=== PATIENT | female | born 1955 | race Caucasian/White ===

== ENCOUNTER → 2020-03-09 16:59 | Outpatient (CLI) | payer OTHER, SELFPAY ==
[2020-02-29 14:21] VITALS: BMI 25.7
--- NOTE | 2020-03-09 17:00 | MRI_ITS ---
STUDY: MRI LUMBAR SPINE WITHOUT CONTRAST REASON FOR EXAM: Female, 64 years old. radiculopathy, rt leg pain, worsening pain x 3-4 mos TECHNIQUE: Standardized fat and water weighted pulse sequences were obtained in the sagittal and axial planes. COMPARISON: 10/13/2007 FINDINGS: T12-L1: Normal endplates. Normal disc height, hydration and morphology. Normal bilateral facet joints. Normal central canal and bilateral lateral recesses. Normal bilateral intervertebral neural foramina. Normal lumbar lordosis. There is no substantial scoliosis. Normal conus medullaris that terminates at T12-L1 L1-2: Normal endplates. Normal disc height, hydration and morphology. Normal bilateral facet joints. Normal central canal and bilateral lateral recesses. Normal bilateral intervertebral neural foramina. L2-3: Normal endplates. Normal disc height, desiccation and minor annular bulge. Normal bilateral facet joints. Normal central canal and bilateral lateral recesses. Normal bilateral intervertebral neural foramina. L3-4: Normal endplates. Normal disc height, desiccation and minor annular bulge with small bilateral foraminal disc protrusions.. Normal bilateral facet joints. Normal central canal and bilateral lateral recesses. Mild bilateral neuroforaminal stenosis. L4-5: Normal endplates. Normal disc height, desiccation and mild annular bulge. Bilateral facet arthropathy.. Normal central canal and bilateral lateral recesses. Moderate bilateral neuroforaminal stenosis L5-S1: Normal endplates. Normal disc height, desiccation and mild annular bulge.. Bilateral facet arthropathy. Normal central canal and bilateral lateral recesses. Moderate bilateral neuroforaminal stenosis.. Normal visualized sacral ala. Normal visualized paraspinous soft tissue structures. There has been interval progression of disc disease and spinal stenosis at L2-3, L3-4 and L4-5 since previous studies MRI/Spine Lumbar (Routine) IMPRESSION: No evidence for acute fracture or other significant bony pathology.. Multilevel spinal stenosis secondary to disc disease and bony hypertrophy which has progressed since previous exam Electronically Signed: Armin Burr MD at 21:42 EDT , Service support ,
== END ==
PROVIDERS: PCP Student in an Organized Health Care Education/Training Program; Referring Provider Physician Assistant; Visit Provider Physician Assistant
DX: M54.31 Sciatica, right side (principal)
CPT/HCPCS: 72148

== ENCOUNTER 2020-05-05 18:09 | Observation (INO) | payer OTHER, SELFPAY ==
[2020-02-29 14:21] VITALS: BMI 25.7
--- NOTE | 2020-04-27 09:57 | EKG12_ITS ---
Test Reason : PRE OP Blood Pressure : / mmHG Vent. Rate : 086 BPM Atrial Rate : 086 BPM P-R Int : 160 ms QRS Dur : 074 ms QT Int : 330 ms P-R-T Axes : 067 -08 035 degrees QTc Int : 394 ms Normal sinus rhythm Normal ECG Confirmed by SERAFIN QUIGLEY, OLLIE ([id number]), dictionary editor ISMAEL SIDDIQI ([id number]) on 04/29/2020 11:25:35 AM Referred By: Viraj Dial Confirmed By:OLLIE BETANCOURT MD
[2020-04-27 10:29] LABS: Absolute Lymphocyte Count 2.39 X10^3/uL (0.83-4.51); Absolute Neutrophil Count 3.4 X10^3/uL (2.0-7.7); Basophil# 0.03 X10^3/uL; Basophil% 0.5 % (0-1); Eosinophil# 0.08 X10^3/uL; Eosinophils% 1.2 % (0-5); Hematocrit 45.4 % (37-47); Hemoglobin 14.7 g/dL (12.0-15.0); Lymphocyte # 2.39 X10^3/ul (4.0); Lymphocyte % 36.1 % (19-41); Mean Corp Hgb Conc 32.4 g/dL (32-36); Mean Corpuscular Hgb 31.3 pg (27.0-32.0); Mean Corpuscular Volume 96.6 fL (81-99); Mean Platelet Vol. 9.5 fl (6.2-12.0); Monocyte# 0.76 X10^3/uL; Monocyte% 11.5 % (0-10); NRBC Flagged by Analyzer 0 % (0-5); Neutrophil # 3.35 X10^3/uL (2.7-7.7); Neutrophil % 50.5 % (47-70); Platelet Count 328 K/mm3 (150-450); RBC Distribution Width CV 12.2 % (11.6-14.6); RBC Distribution Width SD 43.8 fl (35.1-43.9); White Blood Count 6.6 K/mm3 (4.4-11.0)
[2020-04-27 11:15] LABS: Anion Gap 3 (5-15); BUN 17 mg/dL (7-18); BUN/Creat Ratio 16.2 RATIO (10-20); Calcium,Total 8.8 mg/dL (8.5-10.1); Chloride 103 mmol/L (98-107); Creatinine, Serum 1.05 mg/dL (0.55-1.02); EST Glomerular Filtration Rate 56 mL/min (>60); Est Glom Filt Rate - Afr Amer 68 mL/min (>60); Glucose 88 mg/dL (74-106); Potassium 3.7 mmol/L (3.5-5.1); Sodium Level 137 mmol/L (136-145)
[2020-04-27 11:18] LABS: Magnesium 2.3 mg/dL (1.6-2.6)
[2020-04-28 04:07] LABS: HEPATITIS B SURFACE AG Negative (Negative); Hepatitis A AB, Total Negative (Negative); Hepatitis A IgM Antibody Negative (Negative); Hepatitis B Core AB IgM Negative (Negative); Hepatitis B Core Ab Total Negative (Negative); Hepatitis C Ab <0.1 s/co ratio (0.0-0.9)
[2020-04-28 08:43] LABS: Hep B Surface Antibodies Non Reactive (.)
[2020-04-29 13:25] LABS: HIV - WCH Non-Reactive (Nonreactive)
[2020-05-05] VITALS (10 sets, daily range): BP systolic 120–147; BP diastolic 73–87; PULSE 69–92; RESP 14–18; TEMP 36.1–36.9; O2SAT 95–100; BMI 24.8
--- NOTE | 2020-05-05 | DISC_PTH ---
PATIENT: CHARLES VELAZQUEZ LOC: MS3 U#:[id number] AGE/SX: 64/F ROOM: MS318 RE05/05/[address]: Dr. Girma Rivera, : 1955 BED: 1 DIS: 05/07/2020 SPEC #: [id number] RECD: 05/06/20 10:30 STATUS: ANDREA RENidia #: [id number] KI: 05/05/20 00:[address]: Viraj Dial DEPT: SURGICAL PATHOLOGY RECD BY: Javier Willoughby ENTERED: 05/06/20 10:30 SP TYPE: DISC OTHR DR: Dr. Kenny Gar, DO Dr. Delicia Baig, DO Dr. Viraj Dial, DO Dr. Girma Rivera, Tissues: Intervertebral disc, NOS Procedures: Surgery Specimen Level III Comments: @ Ordering doctor for SUIII edited from to @ by MAGAN at 05/06/20 1135 @ Submitting doctor edited from to @ by RGOOD at 05/06/20 1135 HEADER OPERATION: ERAS, laminectomy/discectomy L5-S1 PRE-OP DIAGNOSIS: Disc protrusion at L5-S1 TISSUE SUBMITTED: Right L5-S1 disc MICROSCOPIC DIAGNOSIS Right L5-S1 discs, discectomy: Degenerative and focal reparative change. AM:chacorta 05/09/20 MICROSCOPIC DESCRIPTION Slides are reviewed. GROSS DESCRIPTION Received in fixative is one container labeled with the patient's name and designated right L5-S1 disc. The specimen consists of multiple irregular fragments of indurated, light burris-white soft tissue that in aggregate measure 2.5 x 1.5 x 0.2 cm. The specimen is totally submitted in one cassette. / AM:chacorta 05/06/20 TC:5 CPT: 77784
--- NOTE | 2020-05-05 10:40 | HP_ITS ---
Intake Intake Visit Reasons: 2 W FU Chief Complaint: Right hip pain Allergies latex Allergy (Intermediate, Verified 03/17/20 14:05) Rash PFSH Surgical History (Updated 02/15/20 @ 10:47 by Shara Holt) H/O section (Acute) Right foot surgery (Acute) Family History (Updated 02/15/20 @ 10:48 by Shara Holt) Mother CVA (cerebral vascular accident) Sister Breast cancer History of hip replacement Brother Myocardial infarction Social History (Updated 04/15/20 @ 15:[address] Viraj Dial, ) Smoking Status: Never smoker alcohol intake: current alcohol intake frequency: a few times a week what type of physical activity do you participate in: walking HPI 2 W FU: Details: Parts of this documentation were recorded by a scribe, this documentation accurately reflects the service provided and the decisions made by me, Dr. Viraj Dial, 04/15/20 1351. CHARLES VELAZQUEZ is a 64 year old F here today for her two week follow up. Patient did complete her injections with Dr. Luis. Voiced the injections made made her pretty fatigued. Has needed to receive Toradol injections as well. Patient voiced she did not see any improvement. Charles returns to the clinic in the company of her . She did have the epidural steroid injections and she states that for the first few hours after each injection she got tremendous relief of her leg pain. In fact it almost felt normal. But this only lasted a few hours and then the pain returned. However this served a diagnostic purpose and that it probably really is pressure on the right S1 nerve root. I reviewed her MRI scan again she has a disc protrusion at L5-S1 perhaps a little more on the right than the left. She has no left-sided symptoms. I reexamined her today she is got very positive tension signs and very positive straight leg raising. At this point time I think we will proceed with a laminectomy at L5-S1 on the right side I will see her again prior to surgical intervention. Coding Level of Care Code Off vis,est,level 2 Time Spent (min) 25
[2020-05-05] MEDS: Acetaminophen 500 MG Tablet 1000 MG PO (12:10)
[2020-05-05 12:11] LABS: Bedside Glucose 94 mg/dL (70-110)
[2020-05-05] MEDS: Lactated Ringers 1,000 ML 100 ML IV ×2 (12:20→15:45)
--- NOTE | 2020-05-05 15:25 | RAD_ITS ---
HISTORY: laminectomy, discectomy L5-S1, x-table image in OR ADDITIONAL HISTORY: None provided. EXAMINATION/TECHNIQUE: XR Spine Lumbar 1 View Number of images including paperwork: 1 COMPARISON: 02/15/2020 FINDINGS/IMPRESSION: Single lateral view of the lower lumbar spine shows a retractor and probe posterior to S1. Degenerative changes of the visualized spine, most pronounced at L5-S1. at 0753 Reported and signed by: Arielle Plasencia MD Electronically Signed: Arielle Plasencia MD at 7:53 EST Tel , Service support , RAD/Spine 1 View Any Level
--- NOTE | 2020-05-05 16:38 | PCM.OPRPT ---
Report of Operation Description of Surgical Findings:: Preoperative diagnosis: Per disc L5-S1 with severe right S1 radiculopathy Postoperative diagnosis: Same Procedure: Lumbar laminectomy discectomy L5-S1 on the right Surgeon: Dr. Dial statistical assistant: Marvin Manzano Anesthesia: [facility] EBL: 10 cc Drains: None Complications: None Patient was taken to the OR where she was placed under general endotracheal anesthesia. She was then placed in the prone position on the Celestino frame. After appropriate positioning with care to protect her bony prominences her breasts her ulnar nerves of both elbows her brachial plexus and her cervical spine and facial features the back was prepped and draped in standard fashion. I then made a longitudinal incision centered over L5-S1. I elevated the paravertebral muscles of the lamina of the spinous process of L5 and then the top of the S1 lamina. An intraoperative x-ray was taken with a marker in place to confirm that we were indeed at L5-S1. Then thinned out the lamina on this right side with double-action rongeurs. Then released the ligamentum flavum off the underside of the lamina of L5 and the top of the lamina of S1 using small curettes. This was done I remove the ligamentum flavum in large pieces with a 45 degree Kerrison rongeur. This took it out all the way laterally to remove the ligament in the lateral recess. L5 the S1 nerve root and using a Stuart gently moved medialward exposing the focal disc herniation that was subligamentous pressing directly on the base of the S1 nerve root. With my administrative library assistant holding the nerve and dura over with a nerve root retractor I cut out the protruded disc and removed some more within the disc space with pituitary rongeurs. Completely decompressed the S1 nerve root. We checked the foramen it was quite open this was done with a hockey-stick. Irrigation was carried out 1 last time. We then placed amnionic membrane directly over the exposed dura and nerve root to prevent adhesions to form in the future. We then approximated the lumbar fascia using [id number]-[id number] suture suture with #1 Vicryl followed by closure of subcutaneous tissues in layers with 2-0 Vicryl in interrupted fashion and skin was approximated using skin clips. Sterile dressings were then applied. We felt no need to put a drain in as she only had about 10 cc of blood loss. At closing it was extremely dry. Then moved her to her hospital bed and recovered her in the OR and she was then taken to recovery in satisfactory condition.
--- NOTE | 2020-05-05 18:53 | PCM.PROGNOTE ---
Subjective: Status post L5-S1 right laminectomy with discectomy secondary to severe S1 right radiculopathy-patient was seen and examined this afternoon at the request of orthopedic surgery for medical management of the patient that underwent a L5-S1 right laminectomy with discectomy secondary to severe S1 right radiculopathy. Patient underwent surgery today. Patient's only medications are tramadol and gabapentin, at the time of my examination, patient has no complaints of shortness of breath, chest pain, or any severe pain. - Physical Exam Vitals/I&O's: Vital Signs Temp Pulse Resp BP Pulse Ox 97.8 F 74 16 136/73 H 98 05/05/20 18:27 05/05/20 18:27 05/05/20 18:27 05/05/20 18:27 05/05/20 18:27 Oxygen Flow Rate (L/min) 6 Oxygen Delivery Method Room Air Weight: 67.7 kg Body Mass Index (BMI) 24.8 Intake and Output for Last 24 Hours 05/03/20 05/04/20 05/05/20 23:59 23:59 23:59 Intake Total 1210 / 1210 Output Total 100 / 100 Balance 1110 / 1110 General: Alert, Oriented x3, Cooperative, No apparent distress, Well developed, Well nourished HEENT: Atraumatic, PERRLA, EOMI, Normocephalic Oral: Moist Mucosa Neck: Supple, No JVD, Negative Carotid Bruits, Trachea Midline, Thyroid Normal Size and Texture Lungs: Clear to auscultation, Normal air movement, No rhonchi, No wheeze, No rales Cardiovascular: Regular rate, Regular Rhythm, Normal S1, Normal S2, No murmurs Abdomen: Bowel Sounds Present, Soft, Non Tender, Non-Distended Extremities: No clubbing, No cyanosis, No edema, Capillary Refill Less than 3 Seconds Skin: No rashes, No breakdown Musculoskeletal: No Tenderness to Palpation of Joints or Extremities Neurological: Cranial nerves II-XII grossly intact, Neuro grossly intact, Sensory exam intact to light touch and pain Psych/Mental Status: Normal Affect, Appropriate, Alert and oriented to time, place, person, mood and affect Microbiology Past 72 Hours 05/03/20 13:00 Interface Orders SARS-CoV-2 Antigen (Rapid) - Final Laboratory Results 05/05/20 12:04: POC Glucose 94 Current Medications Albuterol Sulfate (Albuterol 2.5 Mg/3 Ml Vial.Neb.) 2.5 mg INHALATION Q4H PRN PRN PRN Reason: WHEEZING Diazepam (Diazepam 5 Mg Tablet) 5 mg PO Q6H PRN PRN PRN Reason: Muscle Spasms Enteral Nutritional Formula (Ensure Surgery 237 Ml Liquid) 237 ml PO TIDCM KELLIE Famotidine (Famotidine 20 Mg Tablet) 20 mg PO BID KELLIE Gabapentin (Gabapentin 600 Mg Tablet) 600 mg PO TIDCM [facility] Lactated Ringer's () 1,000 mls @ 100 mls/hr IV .Q10H [facility] Last Admin: 05/05/20 15:45 Dose: 100 mls/hr Documented by: Clindamycin Phosphate 900 mg/ (Dextrose) 106 mls @ 150 mls/hr IV Q8H [facility] Stop: 05/06/20 06:43 Morphine Sulfate (Morphine 4 Mg/Ml Syringe) 2 - 4 mg IV Q2H PRN PRN PRN Reason: Pain Score 6-10 Morphine Sulfate (Morphine 2 Mg/Ml Syringe) 2 - 4 mg IV Q2H PRN PRN PRN Reason: Pain Score 6-10 Ondansetron HCl (Ondansetron 4 Mg/2 Ml Vial) 4 mg IV Q8H PRN PRN PRN Reason: NAUSEA Senna/Docusate Sodium (Senna/Docusate Sodium 1 Tablet) 2 tablet PO BID [facility] Sodium Chloride (0.9% Nacl Peripheral Flush Adult/Peds) 5 - 15 ml IV UD PRN PRN Reason: SALINE FLUSH Zolpidem Tartrate (Zolpidem Tartrate 5 Mg Tablet) 5 mg PO QHS PRN PRN PRN Reason: INSOMNIA Medical Necessity - Tobacco Use Smoking Status: Never smoker Assessment/Plan #1 Degenerative disc disease of the lumbar spine [id number] post right laminectomy at L5-S1 level with discectomy postop day 0-patient appears stable postop at this time #2 Severe right S1 radiculopathy secondary to #1 Patient currently appears medically stable at this time, SCDs were ordered for prevention of VTE Inpatient E&M: 15720 Subs Hosp L2
[2020-05-05] MEDS: Ensure Surgery 237 ML LIQUID PO (20:38)
[2020-05-05] MEDS: Famotidine 20 MG Tablet PO (20:39)
[2020-05-05] MEDS: Senna/Docusate Sodium 1 Tablet 2 TABLET PO (20:39)
[2020-05-05] MEDS: Gabapentin 600 MG Tablet PO (20:39)
[2020-05-05] MEDS: Morphine 2 MG/ML Syringe IV ×2 (20:40→21:33)
[2020-05-05] MEDS: Ondansetron 4 MG/2 ML Vial IV (21:11)
[2020-05-05] MEDS: 0.9% NaCl Peripheral Flush Adult/Peds IV (21:49)
[2020-05-06 00:11] VITALS: BP 135/73; PULSE 75; RESP 18; TEMP 36.4; O2SAT 96
[2020-05-06] MEDS: diazePAM 5 MG Tablet PO (00:20)
[2020-05-06] MEDS: 0.9% NaCl Peripheral Flush Adult/Peds IV ×4 (00:56→22:12)
[2020-05-06] MEDS: Morphine 4 MG/ML Syringe IV ×3 (03:17→16:34)
[2020-05-06] MEDS: Lactated Ringers 1,000 ML 100 ML IV ×3 (03:22→22:02)
[2020-05-06 04:15] VITALS: BP 122/75; PULSE 77; RESP 18; TEMP 36.6; O2SAT 96
[2020-05-06 07:10] VITALS: O2SAT 95
[2020-05-06 08:58] VITALS: BP 121/75; PULSE 95; RESP 18; TEMP 35.8; O2SAT 98
[2020-05-06] MEDS: Ensure Surgery 237 ML LIQUID PO ×3 (09:14→16:34)
[2020-05-06] MEDS: Senna/Docusate Sodium 1 Tablet 2 TABLET PO ×2 (09:14→22:02)
[2020-05-06] MEDS: Famotidine 20 MG Tablet PO ×2 (09:14→22:02)
[2020-05-06] MEDS: Gabapentin 600 MG Tablet PO ×3 (09:14→16:31)
[2020-05-06] MEDS: Acetaminophen 500 MG Tablet 1000 MG PO (12:03)
--- NOTE | 2020-05-06 13:45 | PN_ITS ---
Subjective: OR yesterday. Had been having issues for a long time with her back. Having a SANTANA now. Urinary retention since yesterday and murphy placed for 1000 cc of urine. Vitals/I&O's: Vital Signs Temp Pulse Resp BP Pulse Ox 96.4 F L 95 18 121/75 H 98 05/06/20 08:58 05/06/20 08:58 05/06/20 08:58 05/06/20 08:58 05/06/20 08:58 Oxygen Flow Rate (L/min) 6 Oxygen Delivery Method Room Air Weight: 67.7 kg Body Mass Index (BMI) 24.8 Intake and Output for Last 24 Hours 05/04/20 05/05/20 05/06/20 23:59 23:59 23:59 Intake Total 1316 / 1616 2406 / 2406 Output Total 100 / 100 3100 / 3100 Balance 1216 / 1516 -694 / -694 General: Alert, Oriented x3, Cooperative, Well developed, Well nourished HEENT: Atraumatic, Normocephalic Oral: Moist Mucosa Lungs: Clear to auscultation, Normal air movement, No rhonchi, No wheeze, No rales Cardiovascular: Regular rate, Regular Rhythm, Normal S1, Normal S2, No murmurs, No Ectopic Activity, No rub noted, No Gallop Abdomen: Bowel Sounds Present, Soft, Non Tender, Non-Distended Extremities: No clubbing, No cyanosis, No edema, Capillary Refill Less than 3 Seconds, Peripheral Pulses Normal Neurological: Cranial nerves II-XII grossly intact Psych/Mental Status: Normal Affect, Appropriate Microbiology Past 72 Hours 05/03/20 13:00 Interface Orders SARS-CoV-2 Antigen (Rapid) - Final Current Medications Acetaminophen (Acetaminophen 500 Mg Tablet) 1,000 mg PO Q8H PRN PRN PRN Reason: HEADACHE Last Admin: 05/06/20 12:03 Dose: 1,000 mg Documented by: Albuterol Sulfate (Albuterol 2.5 Mg/3 Ml Vial.Neb.) 2.5 mg INHALATION Q4H PRN PRN PRN Reason: WHEEZING Diazepam (Diazepam 5 Mg Tablet) 5 mg PO Q6H PRN PRN PRN Reason: Muscle Spasms Last Admin: 05/06/20 00:20 Dose: 5 mg Documented by: Enteral Nutritional Formula (Ensure Surgery 237 Ml Liquid) 237 ml PO TIDCM [facility] Last Admin: 05/06/20 11:46 Dose: 237 ml Documented by: Famotidine (Famotidine 20 Mg Tablet) 20 mg PO BID [facility] Last Admin: 05/06/20 09:14 Dose: 20 mg Documented by: Gabapentin (Gabapentin 600 Mg Tablet) 600 mg PO TIDCM [facility] Last Admin: 05/06/20 11:46 Dose: 600 mg Documented by: Lactated Ringer's () 1,000 mls @ 100 mls/hr IV .Q10H [facility] Last Admin: 05/06/20 03:22 Dose: 100 mls/hr Documented by: Morphine Sulfate (Morphine 4 Mg/Ml Syringe) 2 - 4 mg IV Q2H PRN PRN PRN Reason: Pain Score 6-10 Last Admin: 05/06/20 07:43 Dose: 4 mg Documented by: Morphine Sulfate (Morphine 2 Mg/Ml Syringe) 2 - 4 mg IV Q2H PRN PRN PRN Reason: Pain Score 6-10 Last Admin: 05/05/20 21:33 Dose: 2 mg Documented by: Ondansetron HCl (Ondansetron 4 Mg/2 Ml Vial) 4 mg IV Q8H PRN PRN PRN Reason: NAUSEA Last Admin: 05/05/20 21:11 Dose: 4 mg Documented by: Senna/Docusate Sodium (Senna/Docusate Sodium 1 Tablet) 2 tablet PO BID [facility] Last Admin: 05/06/20 09:14 Dose: 2 tablet Documented by: Sodium Chloride (0.9% Nacl Peripheral Flush Adult/Peds) 5 - 15 ml IV UD PRN PRN Reason: SALINE FLUSH Last Admin: 05/06/20 03:22 Dose: 10 ml Documented by: Sodium Chloride (0.9% Saline Lock 10 Ml Syringe) 10 - 40 ml IV UD PRN PRN Reason: SALINE FLUSH Zolpidem Tartrate (Zolpidem Tartrate 5 Mg Tablet) 5 mg PO QHS PRN PRN PRN Reason: INSOMNIA Medical Necessity - Tobacco Use Smoking Status: Never smoker Assessment/Plan DDD L5-S1 s/p ight laminectomy at L5-S1 level with discectomy -POD 1 -PT/OT per surgery -pain meds per surgery -add PRN Miralax Severe R Radiculopathy -see above Urinary Retention -Murphy -Flomax -avoid narcotics as able -nsg to notify surgery SANTANA -prn APAP -nsg to notify surgery HTN -restart home lisinopril GERD add PPI DVT prophylaxis -SCDs Inpatient E&M: 56702 Subs Hosp L2
[2020-05-06 15:00] VITALS: BP 123/63; PULSE 97; RESP 18; TEMP 37.2; O2SAT 96
[2020-05-06] MEDS: Tamsulosin HCl 0.4 MG Capsule PO (16:31)
--- NOTE | 2020-05-06 17:13 | PCM.PN.BLA ---
Progress Note Patient is seen on postop day #1. She states that her leg pain is better than it was but she still has some residual pain probably from the swelling of the nerve root. She has not been up today as she refused to get up for nursing. In addition she has not been using her incentive spirometry. She states that she forgot. I encouraged her to continue using it. Her dressing is dry. Neurologically she is intact. She is still using her pain medication and so we will wait until tomorrow to discharge her. STROKE Vital Signs/Narrative: Vital Signs Temp Pulse Resp BP Pulse Ox 05/06/20 15:00 99.0 F 97 18 123/63 H 96
[2020-05-06 21:02] VITALS: BP 99/64; PULSE 98; RESP 18; TEMP 37.3; O2SAT 96
[2020-05-06] MEDS: Morphine 2 MG/ML Syringe IV (22:11)
[2020-05-07 03:24] VITALS: BP 125/61; PULSE 86; RESP 16; TEMP 36.7; O2SAT 95
[2020-05-07 07:17] VITALS: O2SAT 96
[2020-05-07] MEDS: Lactated Ringers 1,000 ML 100 ML IV (07:23)
[2020-05-07] MEDS: Lisinopril 20 MG Tablet PO (08:02)
[2020-05-07] MEDS: Ensure Surgery 237 ML LIQUID PO (08:02)
[2020-05-07] MEDS: Senna/Docusate Sodium 1 Tablet 2 TABLET PO (08:02)
[2020-05-07] MEDS: Gabapentin 600 MG Tablet PO ×2 (08:03→12:40)
[2020-05-07] MEDS: Famotidine 20 MG Tablet PO (08:03)
[2020-05-07] MEDS: Pantoprazole Sodium 40 MG Tablet PO (08:03)
[2020-05-07 09:24] VITALS: BP 114/69; PULSE 75; RESP 18; TEMP 37; O2SAT 96
--- NOTE | 2020-05-07 11:39 | PCM.PN.BLA ---
Progress Note Postop day #2: Wilda is doing extremely well today her leg pain is completely gone. Neurologically she is intact. The dressing was changed the incision is healing well. He was given the following orders. To remove the dressing on Saturday and shower on Saturday. Other than soap and water she is not to put any creams lotions hydrogen peroxide vitamin E or any other liquid other than soap and water. Start walking further and further each day. She is not to sit for more than 20 minutes at a time without at least a 5 or 10-minute break in between. He already has an appointment to see me in the office in 2 weeks. He is not to drive until after I see her. She did anything seem out of the ordinary she is to call the office or I can easily be reached. STROKE Vital Signs/Narrative: Vital Signs Temp Pulse Resp BP Pulse Ox 05/07/20 09:24 98.6 F 75 18 114/69 96
--- NOTE | 2020-05-07 12:52 | DCINST_ITS ---
You will use the following diet at home:: No restrictions Your food should be the consistency of: Regular Your liquids should be the consistency of: Regular/Thin Discharge Activity: May Not Drive Weight Bearing Status: Full weight bearing Additional Instructions: Remove dressing Saturday, shower on Saturday. Put nothing on incision area besides soap and water. Walk as much as you are able-start out slow and increase as tolerated. Do not drive until after you see Dr. Cueto. Do not sit for more than 20 min at a time without a 5-10 min break in between. See Dr. cueto in 2 weeks Allergies/Adverse Reactions: Allergies latex Allergy (Severe, Verified 05/05/20 11:54) Swelling blisters Penicillins Allergy (Verified 05/05/20 11:54) Rash Medications to take at Discharge acetaminophen 500 mg tablet 500 mg PO Q6H PRN 02/15/20 Albuterol Inhaler [Ventolin Hfa] 1 puff INHALATION Q4H PRN PRN 04/22/20 Gabapentin [Neurontin] 600 mg PO TIDCM 04/22/20 Lisinopril/Hydrochlorothiazide [Lisinopril-Hctz 20-12.5 mg Tab] 1 ea PO DAILY 04/22/20 Montelukast [Singulair] 10 mg PO DAILY PRN 04/22/20 Omeprazole 20 mg PO DAILY 04/22/20 Polyethylene Glycol 3350 [Miralax] 17 gm PO DAILY 04/22/20 Tramadol HCl [Ultram] 50 mg PO TID 04/22/20 hydrocodone 10 mg-acetaminophen 325 mg tablet 1 tab PO Q6H PRN #60 tab 05/02/20 Orders to be completed after discharge: 12 Lead EKG [[facility]] Time Frame: 04/27/20, Location: None Selected Primary Care Physician: Kenny Gar DO [Primary Care Provider] - Test Results: Test results from this visit will be discussed in further detail at your follow- up appointment, if applicable. Please Follow Up With: Viraj Cueto DO When: in two weeks
[2020-05-07 12:54] VITALS: BP 121/72; PULSE 92; RESP 18; TEMP 37.1; O2SAT 98
--- NOTE | 2020-05-07 13:28 | NURSING ---
Pt discharged home into the care of . Taken to discharge area by SKIMMER in wheelchair. NADN at this time. IV dc VSS. DC paperwork gone over and given to patient. No Rxs at discharge.
--- NOTE | 2020-05-08 14:59 | PCM.PROGNOTE ---
Subjective: The date of this entry is 05/07/2020: Patient was seen and examined today, she appears medically stable for discharge. I had her Rodriguez removed today and she has been able to void without difficulty. Objective: General: Alert, Oriented x3, Cooperative, No apparent distress, Well developed, Well nourished HEENT: Atraumatic, PERRLA, EOMI, Normocephalic Oral: Moist Mucosa Neck: Supple, No JVD, Negative Carotid Bruits, Trachea Midline, Thyroid Normal Size and Texture Lungs: Clear to auscultation, Normal air movement, No rhonchi, No wheeze, No rales Cardiovascular: Regular rate, Regular Rhythm, Normal S1, Normal S2, No murmurs Abdomen: Bowel Sounds Present, Soft, Non Tender, Non-Distended Extremities: No clubbing, No cyanosis, No edema, Capillary Refill Less than 3 Seconds Skin: No rashes, No breakdown Musculoskeletal: No Tenderness to Palpation of Joints or Extremities Neurological: Cranial nerves II-XII grossly intact, Neuro grossly intact, Sensory exam intact to light touch and pain Psych/Mental Status: Normal Affect, Appropriate, Alert and oriented to time, place, person, mood and affect - Physical Exam Vitals/I&O's: Vital Signs Temp Pulse Resp BP Pulse Ox 98.7 F 92 18 121/72 H 98 05/07/20 12:54 05/07/20 12:54 05/07/20 12:54 05/07/20 12:54 05/07/20 12:54 Oxygen Flow Rate (L/min) 6 Oxygen Delivery Method Room Air Weight: 67.7 kg Body Mass Index (BMI) 24.8 Intake and Output for Last 24 Hours 05/06/20 05/07/20 05/08/20 23:59 23:59 23:59 Intake Total 4994.33 / 4994.33 935 / 935 Output Total 5000 / 5000 1950 / 1950 Balance -5.67 / -5.67 -1015 / -1015 Medical Necessity - Tobacco Use Smoking Status: Never smoker Assessment/Plan #1 Degenerative disc disease of the lumbar spine [id number] post right laminectomy at L5-S1 level with discectomy postop day 2 -patient appears stable postop at this time #2 Severe right S1 radiculopathy secondary to #1 #3 postop urinary retention-resolved at this time Patient currently appears medically stable at this time, I completed her discharge paperwork for discharge home Inpatient E&M: 07222 Subs Hosp L2
== END 2020-05-07 13:45 | disposition home or self-care (01) ==
LOC: SDC 05-06 08:21 → MS3 05-06 08:21
PROVIDERS: Anesthesiology; Admitting Provider Orthopaedic Surgery; PCP Student in an Organized Health Care Education/Training Program; Referring Provider Orthopaedic Surgery; Visit Provider Internal Medicine
PROC: (CPT 63030; principal; 2020-05-05 13:00)
DX: M51.16 Intervertebral disc disorders with radiculopathy, lumbar region (principal); Z20.828 Contact with and (suspected) exposure to other viral communicable diseases; K21.9 Gastro-esophageal reflux disease without esophagitis; K59.09 Other constipation; Z79.899 Other long term (current) drug therapy; I10 Essential (primary) hypertension; J45.909 Unspecified asthma, uncomplicated; R33.9 Retention of urine, unspecified
CPT/HCPCS: 00630; 63030; 36415; 72020; 80048; 82962; 83735; 85025; 86703; 86704; 86705; 86706; 86708; 86709; 86803; 87081; 87340; 87426; 88304; 93005; 96361; 96365; 96366; 96375; 96376; 97162; 99218; C9803; J7120; A4216; G0378; G0379; J2405